=== PATIENT | male | born 1970 | race African-American/Black ===

== ENCOUNTER 2021-05-08 08:58 | Emergency (ER) | payer OTHER ==
[~2021-05-08] VITALS: Ht 195.6 cm; Wt 120.0 kg
[2021-05-08] MEDS ORDERED: SODIUM CHLORIDE 0.9% 1,000 ML IV ONE (09:45)
[2021-05-08 10:10] LABS: BASOPHILS % 0.2 % (0.0-2.0); EOSINOPHILS % 0.3 % (0.0-5.0); HEMATOCRIT. 48.7 % (42.0-52.0); LYMPHOCYTES % 14.1 % (20.0-50.0); MEAN CORPUSCULAR HEMOGLOBIN 27.1 pg (28.0-32.0); MEAN CORPUSCULAR VOLUME 82.3 fL (80.0-94.0); MEAN PLATELET VOLUME 7.6 fl (7.4-10.4); MONOCYTES % 7.3 % (2.0-8.0); NEUTROPHILS % 78.1 % (40.0-76.0); PLATELET 218 x1000/uL (130-400); RED BLOOD CELL COUNT 5.92 mill/uL (4.7-6.1); RED CELL DISTRIBUTION WIDTH 14.1 % (11.6-14.6)
[2021-05-08 11:37] LABS: CHLORIDE 108 mEq/L (98-107)
[2021-05-08] MEDS ORDERED: LEVO750T46 MT (15:01)
[2021-05-08 15:34] VITALS: BP 146/69
== END 2021-05-08 15:56 | disposition home or self-care (01) ==
LOC: ER 08:58
DX: J18.9 Pneumonia, unspecified organism (principal); R55 Syncope and collapse; Z20.822 Contact with and (suspected) exposure to COVID-19
CPT/HCPCS: 36415; 71045; 80053; 84484; 85025; 93005; 96360; 96361; 99285; J7030

== ENCOUNTER 2024-03-17 16:37 | Emergency (ER) | payer MEDICAID, OTHER ==
[~2024-03-17] VITALS: Ht 195.6 cm; Wt 105.0 kg
[~2024-03-17 16:37] MED LIST: LEVO750T68 MT
[2024-03-17 16:38] VITALS: O2SAT 96
[2024-03-17] MEDS ORDERED: CLONIDINE 0.2MG TABLET PO STA (16:57)
[2024-03-17] MEDS: SODIUM CHLORIDE 0.9% 1,000 ML IV ONE (17:08)
[2024-03-17] MEDS: ONDANSETRON HCL 4MG/2ML INJ IV ONE (17:08)
[2024-03-17] MEDS: CLONIDINE 0.1MG TABLET PO NR (17:14)
[2024-03-17 18:37] LABS: BASOPHILS % 0.3 % (0.0-2.0); EOSINOPHILS % 0.1 % (0.0-5.0); HEMOGLOBIN. 15.7 g/dL (14.0-18.0); LYMPHOCYTES % 14.7 % (20.0-50.0); MEAN CORPUSCULAR HEMOGLOBIN 27.3 pg (28.0-32.0); MEAN CORPUSCULAR HGB CONC 32.8 g/dL (31.0-37.0); MEAN CORPUSCULAR VOLUME 83.2 fL (80.0-94.0); MEAN PLATELET VOLUME 7.5 fl (7.4-10.4); MONOCYTES % 6.3 % (2.0-8.0); NEUTROPHILS % 78.6 % (40.0-76.0); PLATELET 236 x1000/uL (130-400); RED BLOOD CELL COUNT 5.77 mill/uL (4.7-6.1); RED CELL DISTRIBUTION WIDTH 14.6 % (11.6-14.6); WHITE BLOOD COUNT 9.5 x1000/uL (4.5-11.0)
[2024-03-17 18:52] LABS: CARBON DIOXIDE 26 mEq/L (21-32); CHLORIDE 106 mEq/L (98-107); SODIUM 139 mEq/L (136-145)
[2024-03-17 18:53] LABS: CALCIUM 10.1 mg/dL (8.7-10.4); TROPONIN I HIGH SENSITIVITY 7 ng/L (3.0-53)
[2024-03-17 18:57] LABS: CREATININE 1.2 mg/dL (0.6-1.3); THYROID STIMULATING HORMONE 1.74 uIU/mL (0.55-4.78)
[2024-03-17 18:58] LABS: GLUCOSE 114 mg/dL (70-105); T4 FREE 1.08 ng/dL (0.89-1.76); UREA NITROGEN BLOOD 9 mg/dL (9-23)
[2024-03-17 19:00] LABS: PHOSPHORUS 1.9 mg/dL (2.5-4.9)
[2024-03-17 20:00] VITALS: BP 148/83; PULSE 94; RESP 19; TEMP 37.22520; O2SAT 95
[2024-03-17] MEDS: ONDANSETRON HCL 4MG/2ML INJ IV STA (20:05)
[2024-03-17 20:59] LABS: TROPONIN I HIGH SENSITIVITY 8 ng/L (3.0-53)
== END 2024-03-17 20:24 | disposition home or self-care (01) ==
LOC: ER 16:37
DX: R00.2 Palpitations (principal); R00.0 Tachycardia, unspecified; I10 Essential (primary) hypertension
CPT/HCPCS: 80048; 83880; 84439; 83735; 84100; 84443; 85025; 84484; 36415; 93005; 96361; 96374; 96376; 99284; J2405; J7030; Z7610